=== PATIENT | female | born 1960 | race Caucasian/White ===

== ENCOUNTER 2023-09-19 10:39 | Emergency (ER) | payer SELFPAY ==
[~2023-09-19] VITALS: Ht 158.8 cm; Wt 50.3 kg
[2023-09-19 10:44] VITALS: BP 119/84; PULSE 85; RESP 18; TEMP 97; O2SAT 99
[2023-09-19] MEDS ORDERED: HYDROcodone/APAP 5/325 MG 1 TAB TAB PO ONE (12:35)
[2023-09-19] MEDS ORDERED: ACET-8905 PO (13:30)
[2023-09-19] MEDS ORDERED: IBUP-2213 PO (13:30)
[2023-09-19 14:27] VITALS: BP 125/76; PULSE 76; RESP 16; O2SAT 99
== END 2023-09-19 14:26 | disposition home or self-care (01) ==
LOC: MED 10:39
DX: S86.812A Strain of other muscle(s) and tendon(s) at lower leg level, left leg, initial encounter (principal); S80.01XA Contusion of right knee, initial encounter; X58.XXXA Exposure to other specified factors, initial encounter; Y93.89 Activity, other specified; Y92.89 Other specified places as the place of occurrence of the external cause; Y99.8 Other external cause status
CPT/HCPCS: 29505; 73562; 99283